=== PATIENT | male | born 1985 | race Caucasian/White ===

== ENCOUNTER 2016-04-23 02:22 | Emergency (ER) | payer SELFPAY | END 2016-04-23 03:35 | disposition home or self-care (01) | LOC: D.ER 02:22 | DX: J20.9 Acute bronchitis, unspecified (principal); F17.200 Nicotine dependence, unspecified, uncomplicated ==

== ENCOUNTER 2018-10-27 09:09 | Emergency (ER) | payer MEDICAID ==
[~2018-10-27] VITALS: Ht 180.3 cm; Wt 81.8 kg
[2018-10-27 09:21] VITALS: BP 126/77; Ht 180.3 cm; Wt 81.8 kg
== END 2018-10-27 09:39 | disposition left against medical advice (07) ==
LOC: D.ER 09:09
DX: R52 Pain, unspecified (principal); M54.9 Dorsalgia, unspecified; R51 Headache